=== PATIENT | female | born 1985 | race Two or more races ===

== ENCOUNTER 2016-10-24 22:39 | Emergency (ER) | payer OTHER ==
[~2016-10-24] VITALS: Ht 172.7 cm; Wt 131.8 kg
[2016-10-24] MEDS ORDERED: VALACYCLOVIR 500MG TABLET PO ONE (23:30)
[2016-10-24] MEDS ORDERED: OXYcodone/APAP 5/325MG TABLET PO ONE (23:30)
[2016-10-24] MEDS ORDERED: ONDANSETRON ODT 4 MG PO ONE (23:30)
[2016-10-24] MEDS ORDERED: OXYcodone/APAP 5/325MG TABLET ONE (23:47)
[2016-10-24] MEDS ORDERED: ONDANSETRON ODT 4 MG ONE (23:47)
[2016-10-24 23:52] VITALS: BP 121/66
== END 2016-10-25 01:02 ==
LOC: ED 10-25 00:40
DX: B02.9 Zoster without complications (principal)
CPT/HCPCS: 99284; Q0162

== ENCOUNTER 2019-12-01 14:05 | Emergency (ER) | payer OTHER ==
[~2019-12-01] VITALS: Ht 172.7 cm; Wt 105.1 kg
--- NOTE | 2019-12-01 14:23 | NUR ---
PT WITH C/O VAG BLEEDING AND MILD CRAMPING X2DAYS, STATES SHE IS APPROX 8 WKS . PT DENIES ABD PAIN. DENIES NEED FOR PAIN MEDICATION AT THIS TIME. ERMD IN TO EVAL PT, PT TO CONT PULSE OX, BP
[2019-12-01 14:47] VITALS: BP 115/67
--- NOTE | 2019-12-01 14:50 | NUR ---
PT AMBULATED TO BR WITH STEADY GAIT, UA SAMPLE COLLECTED AND SENT TO LAB
[2019-12-01 14:57] LABS: MICROSCOPIC NOT IND
[2019-12-01 15:03] LABS: CULTURE INDICATED? NO
[2019-12-01 15:07] LABS: BASOPHILS # (AUTO) 0.03 x10^3/uL (0-0.1); BASOPHILS % (AUTO) 0 % (0-1); EOSINOPHILS # (AUTO) 0.23 x10^3/uL (0-0.4); EOSINOPHILS % (AUTO) 3 % (1-7); LYMPHOCYTES # (AUTO) 2.02 x10^3/uL (1-3.4); LYMPHOCYTES % (AUTO) 27 % (22-44); MD NO; MEAN CORPUSCULAR HEMOGLOBIN 27.8 pg (27.0-34.8); MEAN CORPUSCULAR HGB CONC 33.3 g/dL (32.4-35.8); MEAN CORPUSCULAR VOLUME 83.3 fL (80-100); MEAN PLATELET VOLUME 10.5 fL (7.4-10.4); MONOCYTES # (AUTO) 0.58 x10^3/uL (0.2-0.8); MONOCYTES % (AUTO) 8 % (2-9); NEUTROPHILS # (AUTO) 4.74 x10^3/uL (1.8-6.8); NEUTROPHILS % (AUTO) 62 % (42-75); PLATELET COUNT 184 x10^3/uL (130-400); RED BLOOD COUNT 4.88 x10^6/uL (3.82-5.3); RED CELL DISTRIBUTION WIDTH 14.9 % (9.6-15.2)
--- NOTE | 2019-12-01 16:41 | NUR ---
dr kong spoke with dr osorio
== END 2019-12-01 17:00 | disposition home or self-care (01) ==
LOC: ED 15:29
DX: O20.0 Threatened abortion (principal); R10.9 Unspecified abdominal pain; Z3A.08 8 weeks gestation of pregnancy
CPT/HCPCS: 36415; 76801; 81003; 84702; 85025; 86901; 99284

== ENCOUNTER 2020-10-04 16:27 | Outpatient (CLI) | payer OTHER ==
[~2020-10-04] VITALS: Ht 172.7 cm; Wt 125.9 kg
[2020-10-04 16:58] LABS: ALANINE AMINOTRANSFERASE 15 U/L (12-78); ALBUMIN 2.8 g/dL (3.4-5.0); ANION GAP 6 mmol/L (5-15); CALCIUM 8.9 mg/dL (8.5-10.1); CHLORIDE 108 mmol/L (98-107); CREATININE 0.64 mg/dL (0.55-1.02)
[2020-10-04 17:00] LABS: BILIRUBIN, DIRECT < 0.1 mg/dL (0.1-0.2)
[2020-10-04 17:01] LABS: ALKALINE PHOSPHATASE 78 U/L (45-117); BILIRUBIN,TOTAL 0.2 mg/dL (0.2-1.0); TOTAL PROTEIN 6.9 g/dL (6.4-8.2)
[2020-10-04 17:08] VITALS: BP 121/67
[2020-10-04 17:12] LABS: BASOPHILS % (AUTO) 0 % (0-1); EOSINOPHILS % (AUTO) 2 % (1-7); LYMPHOCYTES % (AUTO) 22 % (22-44); MEAN CORPUSCULAR HEMOGLOBIN 27.4 pg (27.0-34.8); MEAN CORPUSCULAR HGB CONC 32.9 g/dL (32.4-35.8); MEAN PLATELET VOLUME 9.9 fL (7.4-10.4); MONOCYTES % (AUTO) 9 % (2-9); NEUTROPHILS % (AUTO) 67 % (42-75); PLATELET COUNT 178 x10^3/uL (130-400); RED CELL DISTRIBUTION WIDTH 14.3 % (9.6-15.2)
[2020-10-04 17:15] LABS: MD NO
[2020-10-04] MEDS ORDERED: PREN1TAB10 PO (17:30)
[2020-10-04 17:37] LABS: MICROSCOPIC INDICATED
== END 2020-10-04 18:05 | disposition home or self-care (01) ==
LOC: LDOP 16:27
PROVIDERS: ATTEND Obstetrics & Gynecology
DX: O16.3 Unspecified maternal hypertension, third trimester (principal); Z3A.34 34 weeks gestation of pregnancy
CPT/HCPCS: 36415; 59025; 80053; 81001; 82248; 82570; 84156; 84550; 85025; 87086

== ENCOUNTER 2020-12-06 17:39 | Emergency (ER) | payer OTHER ==
[~2020-12-06] VITALS: Ht 172.7 cm; Wt 113.9 kg
[~2020-12-06 17:39] MED LIST: IBUP-1222 PO; PREN1TAB10 PO
--- NOTE | 2020-12-06 18:00 | NUR ---
PT PRESENTS TO ED WITH C/O BODY ACHES AND FEVER SINCE FRIDAY. PT STATES THEY DELIVERED BABY 3 WEEKS AGO. DENIES EXPOSURE TO COVID SINCE. DENIES VOMITTING. PT STATES 4 DAYS THEY NOTICED "TISSUE" THAT CAME OUT OF VAGINA THAT WAS NOT A BLOOD CLOT. PT A&O, RESPS EVEN AND UNLABORED, ALL MONITORS ATTACHED, NSR, VSS BUT TEMP OF 103. ERMD SAHM AT BEDSIDE FOR EVAL.
--- NOTE | 2020-12-06 18:19 | NUR ---
XRAY AT BEDSIDE
[2020-12-06] MEDS ORDERED: IBUPROFEN 600 MG TABLET ONE (18:33)
[2020-12-06 18:42] LABS: ALANINE AMINOTRANSFERASE 59 U/L (12-78); ALBUMIN 3.1 g/dL (3.4-5.0); ANION GAP 6 mmol/L (5-15); CALCIUM 8.4 mg/dL (8.5-10.1); CHLORIDE 109 mmol/L (98-107); CREATININE 0.93 mg/dL (0.55-1.02)
[2020-12-06 18:44] LABS: ALKALINE PHOSPHATASE 76 U/L (45-117); BILIRUBIN,TOTAL 0.3 mg/dL (0.2-1.0); TOTAL PROTEIN 7.5 g/dL (6.4-8.2)
[2020-12-06 18:47] LABS: BASOPHILS % (AUTO) 0 % (0-1); EOSINOPHILS % (AUTO) 2 % (1-7); LYMPHOCYTES % (AUTO) 28 % (22-44); MEAN CORPUSCULAR HEMOGLOBIN 25.8 pg (27.0-34.8); MONOCYTES % (AUTO) 10 % (2-9); NEUTROPHILS % (AUTO) 60 % (42-75); PLATELET COUNT 187 x10^3/uL (130-400); RED BLOOD COUNT 4.88 x10^6/uL (3.82-5.3); RED CELL DISTRIBUTION WIDTH 14.9 % (9.6-15.2)
[2020-12-06 18:48] LABS: MD NO
--- NOTE | 2020-12-06 18:55 | NUR ---
REPORT GIVEN TO LYRIC ROSAS
[2020-12-06] MEDS ORDERED: IBUPROFEN 600 MG TABLET PO ONE (19:00)
[2020-12-06] MEDS ORDERED: SODIUM CHLORIDE FLUSH 10ML SYR IVF ONE (19:00)
[2020-12-06] MEDS ORDERED: SODIUM CHLORIDE 0.9% 1,000ML IVBOLUS ONE ×2 (19:00→20:00)
--- NOTE | 2020-12-06 19:00 | NUR ---
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 PIV ATTEMPTED X 2 BY THIS RN WITHOUT SUCCESS, RALPH TAVAREZ TO ATTEMPT.
[2020-12-06 19:08] LABS: MICROSCOPIC AUTO
--- NOTE | 2020-12-06 19:09 | NUR ---
recieved report from day shift RN, this RN introduced himself to pt and , started IV 20G right forearm, fluids running as bolus, all needs in reach, call light in reach, NAD, bed in low position with side rails up
--- NOTE | 2020-12-06 19:12 | NUR ---
This nurse chaperoned Kyle for transvaginal ultrasound. IVF infusing, wide open.
--- NOTE | 2020-12-06 19:34 | NUR ---
IVF finished, VSS. Pt pumping now, waiting for ultrasound report. AIDET provided
[2020-12-06] MEDS ORDERED: ACETAMINOPHEN 500 MG TABLET PO ONE (20:00)
[2020-12-06] MEDS ORDERED: ACETAMINOPHEN 500 MG TABLET ONE (20:07)
[2020-12-06 21:23] VITALS: BP 121/54
== END 2020-12-06 21:47 | disposition home or self-care (01) ==
LOC: ED 21:11
DX: R50.9 Fever, unspecified (principal); M54.5 Low back pain; R51.9 Headache, unspecified; R00.0 Tachycardia, unspecified
CPT/HCPCS: 36415; 71045; 76830; 80053; 81001; 83605; 85025; 87040; 96360; 99285; J7030